=== PATIENT | female | born 1960 | race Caucasian/White ===

== ENCOUNTER 2023-03-26 15:28 | Emergency (ER) | payer OTHER, SELFPAY ==
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
[2023-03-26 15:30] VITALS: BP 177/89; PULSE 83; TEMP 36.9; O2SAT 94; BMI 40.3
[2023-03-26 16:00] VITALS: PULSE 83; O2SAT 95
[2023-03-26 16:48] VITALS: BP 159/80; PULSE 79; O2SAT 94
== END 2023-03-26 16:45 | disposition home or self-care (01) ==
PROVIDERS: Emergency Provider Emergency Medicine; PCP Nurse Practitioner Primary Care
DX: Z04.1 Encounter for examination and observation following transport accident (principal); V49.50XA Passenger injured in collision with unspecified motor vehicles in traffic accident, initial encounter
CPT/HCPCS: 70450; 71045; 72125; 99284